=== PATIENT | male | born 1985 | race Caucasian/White ===

== ENCOUNTER 2023-03-14 10:59 | Emergency (ER) | payer OTHER, MEDICAID, SELFPAY ==
[2023-03-14 11:01] VITALS: BP 141/103; PULSE 110; RESP 18; TEMP 36.6; O2SAT 98; BMI 44.1
--- NOTE | 2023-03-14 11:11 | EX.ED.DYSGE1 ---
HPI History of Present Illness Chief Complaint: Dizziness [facility] Home Medications diphenhydramine HCl 25 mg capsule (Banophen) 25 mg PO TID PRN PRN Anaphylaxis ##30 07/15/13 [Rx Last Taken Unknown] epinephrine 0.3 mg/0.3 mL injection, auto-injector 0.3 mg (0.3 mL) IM X1 ##2 07/15/13 [Rx Last Taken Unknown] famotidine 20 mg tablet 20 mg PO DAILY ##5 07/15/13 [Rx Last Taken Unknown] prednisone 20 mg tablet 40 mg PO DAILY ##5 07/15/13 [Rx Last Taken Unknown] epinephrine 0.3 mg/0.3 mL injection, auto-injector 0.3 mg (0.3 mL) IM X1 ##2 05/28/16 [Rx Last Taken Unknown] meclizine 25 mg tablet 25 mg PO 4X/DAY PRN PRN Dizziness #20 tabs 03/14/23 [Rx Last Taken Unknown] Allergy/AdvReac Type Severity Reaction Status Date / Time No Known Allergies Allergy Verified 03/14/23 11:00 Social History Smoking Status: Former smoker EXAM Physical Exam Const Vital Signs: 03/14/23 11:01 03/14/23 11:34 03/14/23 12:10 Temperature 97.8 F Temperature Source Temporal Pulse Rate 110 H Pulse Rate [Lying] 93 Pulse Rate [Sitting (for 1 minute prior to obtaining)] 98 Pulse Rate [Standing (for 1 minute prior to obtaining)] 112 H Respiratory Rate 18 Respiratory Effort Normal Non-Labored Blood Pressure 141/103 H Blood Pressure [Lying] 141/86 H Blood Pressure [Sitting (for 1 minute prior to obtaining)] 139/84 H Blood Pressure [Standing (for 1 minute prior to obtaining)] 140/69 H Blood Pressure Mean 115 Blood Pressure Mean [Lying] 104 Blood Pressure Mean [Sitting (for 1 minute prior to obtaining)] 102 Blood Pressure Mean [Standing (for 1 minute prior to obtaining)] 92 Pulse Ox 98 Oxygen Delivery Method Room Air 03/14/23 12:11 03/14/23 14:08 Temperature Temperature Source Pulse Rate 82 87 Pulse Rate [Lying] Pulse Rate [Sitting (for 1 minute prior to obtaining)] Pulse Rate [Standing (for 1 minute prior to obtaining)] Respiratory Rate 25 H 12 Respiratory Effort Blood Pressure 132/70 H 157/99 H Blood Pressure [Lying] Blood Pressure [Sitting (for 1 minute prior to obtaining)] Blood Pressure [Standing (for 1 minute prior to obtaining)] Blood Pressure Mean 90 118 Blood Pressure Mean [Lying] Blood Pressure Mean [Sitting (for 1 minute prior to obtaining)] Blood Pressure Mean [Standing (for 1 minute prior to obtaining)] Pulse Ox 96 97 Oxygen Delivery Method Room Air Room Air [facility] [place] Medical decision making narrative: HISTORY OF PRESENT ILLNESS: 38-year-old male here for dizziness that started yesterday morning. States he notes room spinning he notes he is nauseous. He states the dizziness is worse when rising from a seated position. States symptoms have been going on for last 24 hours. Denies any head trauma or loss of sensation. Does note a family history of intracranial aneurysms. States he was seen in urgent care prior to arrival and they were concerned about intracranial aneurysms. Patient denies sudden onset or thunderclap headache, denies maximal intensity within 1 minute, vomiting, neck pain or stiffness, changes in vision, fever, history malignancy, syncope, seizures. REVIEW OF SYSTEMS: Pertinent positives: Dizziness, nausea Pertinent negatives: Focal numbness weakness or loss of sensation PHYSICAL EXAM: Nursing triage notes reviewed, Vital signs reviewed Constitutional: please see mdm HENT: MMM Eyes: Pupils equal round and reactive to light, Extraocular muscles intact Neck: No stridor, no JVD, full neck ROM Lungs: Clear to auscultation, No wheezing or rales. No increased work of breathing, no conversational dyspnea, no accessory muscle use, no nasal flaring. No respiratory distress noted Heart: Regular rate and rhythm, No murmurs, No rubs and No gallops, 2+ distal pulses (radial, femoral, posterior tibial) in all extremities Abdomen: Soft, there is no tenderness, rigidity, rebound or guarding, no obvious peritoneal signs, no palpable pulsatile abdominal masses, no auscultated abdominal bruit : No CVAT Extremities: No edema Neuro: Alert and oriented x3, neuro exam at baseline, cranial nerves II through XII are intact. No pain with extraocular muscle movement. There is negative test of skew. Normal speech. 5 of 5 strength in upper and lower extremities in flexion extension. Intact sensation to light touch in upper and lower extremity dermatomes. No truncal or extremity ataxia. No dysdiadochokinesia. Normal gait. 2+ reflexes. No meningeal signs. Negative Babinski. NIH of 0 Skin: No rash or lesions noted MEDICAL DECISION MAKING: Chief Complaint: Dizziness External records reviewed: No recent advanced imaging of the head noted in the chart Factors affecting care: GERD Social determinants of health: Former smoker History obtained from others: Consults: None ALL IMAGES HAVE BEEN PERSONALLY REVIEWED AND INTERPRETED BY MYSELF. MDM Narrative: Patient was hemodynamically stable, mild tachycardic afebrile and nontoxic-appearing I considered the following differential diagnosis: Dehydration, electrolyte abnormalities, anemia, ACS posterior circulation CVA, peripheral vertigo, BPPV, labyrinthitis Initial neuro exam was nonfocal. NIH of 0. No truncal, extremity or gait ataxia noted. Maddy-Hallpike was negative. Given negative [place]-Hallpike was more concerned about a central etiology the patient's dizziness. I obtained a CTA of the head and neck which showed no evidence of aneurysm, large vessel occlusion or acute CVA, bleed or mass. Labs were without evidence of significant dehydration, leukocytosis, anemia, myocardial ischemia. EKG had no evidence of arrhythmia or myocardial ischemia as well. Chest x-ray showed no evidence of focal cardiopulmonary abnormalities. No clear life or limb threatening abnormality could be identified to explain the patient's dizziness. Given its exacerbation by rising from a seated position I suspect he is having some orthostatic hypotension producing dizziness and near syncope. I encouraged him to get increase his fluid intake and to follow-up his primary care physician for outpatient evaluation. I gave strict return precautions and follow-up instructions. I completed a structured, evidence-based clinical evaluation to screen for acute stroke and neurologic deficits in this patient. The patient has a normal detailed neurologic exam, which is highly sensitive for dangerous causes of dizziness, vertigo, or loss of balance. The evidence indicates that the patient is very low risk for an acute neurologic emergency and this is consistent with my clinical intuition. The risk of further workup or hospitalization is likely higher than the risk of the patient having a stroke or other dangerous neurologic condition. It is, therefore, in the patient?s best interest not to do additional emergent testing or to be hospitalized at this time. Shared Decision-Making I have discussed with the patient my clinical impression and the result of an evidence-based clinical evaluation to screen for stroke, as well as the risk of further testing and hospitalization. The evidence shows that the risk for stroke is less than 1%. Although the risk of stroke has not been completely eliminated, the risks of further testing or hospitalization likely exceed any potential benefit, and the patient agrees with not pursuing further emergent evaluation or hospitalization for stroke evaluation at this time. The patient and/or family, caregivers express understanding. The patient and/or family, caregivers agrees with the plan. Total critical care time today provided was at least 0 minutes. This excludes separately billable procedures. Critical care time if documented is secondary to the patient having high probability of clinically significant/life threatening deterioration in the patient's condition which required my urgent intervention. Lab Data Attestation: I reviewed the patient's lab results. Lab results narrative: EKG with normal sinus rhythm, left axis deviation, normal intervals, no STEMI CBC without leukocytosis, severe anemia, no thrombocytopenia. BMP without evidence of significant electrolyte abnormalities, no anion gap, no acute kidney injury. Troponin is negative, no evidence of myocardial ischemia Labs: Laboratory Results - last 24 hr 03/14/23 03/14/23 12:05 12:05 WBC 6.1 RBC 5.23 Hgb 15.0 Hct 43.8 MCV 83.7 MCH 28.7 MCHC 34.2 RDW Std Deviation 35.8 RDW Coeff of Oracio 11.9 Plt Count 281 MPV 9.6 Immature Gran % (Auto) 0.700 Neut % (Auto) 62.6 Lymph % (Auto) 27.4 [place] % (Auto) 6.4 Eos % (Auto) 2.1 Baso % (Auto) 0.8 Absolute Neuts (auto) 3.8 Absolute Lymphs (auto) 1.66 Nucleated RBC % 0 Sodium 138 Potassium 4.0 Chloride 109 H Carbon Dioxide 25.0 Anion Gap 4 L BUN 19 H Creatinine 1.08 Estim Creat Clear Calc 99.79 Est GFR (MDRD) Af Amer 97 Est GFR (MDRD) Non-Af 81 BUN/Creatinine Ratio 17.6 Glucose 136 H Calcium 9.1 Troponin I High Sens 4 Radiography Chest X-Ray - ED: Read by ED Physician Diagnostic Testing: Clinical Impression(s) from Imaging Studies Head/Neck CTA 03/14/23 11:57 IMPRESSION: Mucosal thickening of the ethmoid sinuses and right maxillary sinus as well as the anterior aspect of the right sphenoid sinus. Electronically Signed: Lukas Arevalo MD at 13:25 EDT , Chest X-Ray 03/14/23 12:45 IMPRESSION: Normal x-ray examination of the chest. Electronically Signed: Lukas Arevalo MD at 13:16 EDT , I have personally reviewed the patient's chest x-ray. Chest x-ray is unremarkable for pulmonary edema, pneumothorax, pneumonia or focal cardiopulmonary abnormality. Discharge Plan Triage Chief Complaint: Dizziness ED Provider: Jonny Parish Dx/Rx/DC Orders Instructions: ED Dizziness, Uncertain Cause Prescriptions: New meclizine 25 mg tablet 25 mg PO 4X/DAY PRN PRN (Reason: Dizziness) Qty: 20 0RF No Action prednisone 20 MG tablet 40 mg PO DAILY Qty: 5 0RF Rx Instructions: take for 5 days famotidine 20 MG tablet 20 mg PO DAILY Qty: 5 0RF Rx Instructions: take for 5 days diphenhydramine HCl [Banophen] 25 MG capsule 25 mg PO TID PRN PRN (Reason: Anaphylaxis) Qty: 30 0RF epinephrine 0.3 MG syringe 0.3 mg IM X1 Qty: 2 1RF epinephrine 0.3 MG syringe 0.3 mg IM X1 Qty: 2 1RF Stand Alone Forms: ED Work / School Excuse Primary Care Provider: Sam Rosales Referrals: Sam Rosales MD [Primary Care Provider] - Activity Restrictions/Additional Instructions: Thank you for trusting us with your care today! Please take meclizine as needed for dizziness. Please return to the emergency department if your symptoms change or worsen. Specifically if you develop loss of vision, blurry vision, slurred speech, difficulty swallowing, difficulty talking, loss of sensation or movement in your extremities. Please follow with your primary care physician for further outpatient evaluation and management. Disposition Disposition: Home, Self Care Discharge Date/Time: 03/14/23 14:12
[2023-03-14 11:34] VITALS: BP 139/84; BP 140/69; BP 141/86; PULSE 112; PULSE 93; PULSE 98
--- NOTE | 2023-03-14 11:57 | CT_ITS ---
STUDY: CTA HEAD AND NECK WITH CONTRAST REASON FOR EXAM: Male, 38 years old. Dizziness RADIATION DOSAGE (If Supplied By Facility): CTDIvol = ( 38.95 ) mGy, DLP = ( 1262.47 ) mGycm TECHNIQUE: CT angiography was performed with a multi-detector CT scanner. Data acquisition was obtained from the skull base through the vertex following intravenous administration of IV 100mL [id number]-[id number]. MIP images were reconstructed from the axial data set. Post-processing of the angiographic images was performed, with multiplanar reformation and 3D reconstruction. Individualized dose optimization techniques were used for this CT. COMPARISON: No relevant priors. FINDINGS: Normal bilateral petrous carotid arteries. Normal right cavernous carotid artery with a normal supraclinoid bifurcation. Normal left cavernous carotid artery with a normal supraclinoid bifurcation. Normal right A1 segments of the anterior cerebral artery. Normal left A1 segments of the anterior cerebral artery. Normal intact anterior communicating artery (ACOM). Normal bilateral A2 segments of the anterior cerebral arteries. Normal right M1 and M2 segments of the middle cerebral arteries, with a normal M1 bifurcation. Normal left M1 and M2 segments of the middle cerebral arteries, with a normal M1 bifurcation. Normal right posterior communicating artery (PCOM). Normal left posterior communicating artery (PCOM). Normal bilateral vertebral arteries. Normal basilar artery with a normal basilar bifurcation. The visualized bilateral superior cerebellar (SCA) arteries are normal. Normal bilateral P1, P2 and visualized P3 segments of the posterior cerebral arteries. There is no demonstrated aneurysm of the [place]. There is no demonstrated abnormality of the visualized brain. AORTIC ARCH: Normal visualized aortic arch. Normal origins of the brachiocephalic, left common carotid, and left subclavian arteries. RIGHT CAROTID ARTERIES: Normal right common carotid artery (CCA). Normal right common carotid bulb. Normal origin of the right internal carotid (ICA) artery without a hemodynamically significant stenosis. Normal visualized cervical portion of the right internal carotid artery. Normal origin of the right external carotid artery (ECA). LEFT CAROTID ARTERIES: Normal left common carotid artery (CCA). Normal left common carotid bulb. Normal origin of the left internal carotid (ICA) artery without a hemodynamically significant stenosis. Normal visualized cervical portion of the left internal carotid artery. Normal origin of the left external carotid artery (ECA). VERTEBRAL ARTERIES: Normal bilateral vertebral arteries. IMPRESSION: Normal CTA Head and neck with contrast. Electronically Signed: Lukas Arevalo MD at 13:23 EDT , STUDY: CT BRAIN WITHOUT CONTRAST REASON FOR EXAM: Male, 38 years old. Dizziness RADIATION DOSAGE (If Supplied By Facility): CTDIvol = ( 44.99 ) mGy, DLP = ( 796.11 ) mGycm TECHNIQUE: Transaxial CT imaging of the brain was performed without administration of intravenous contrast material. Individualized dose optimization techniques were used for this CT. COMPARISON: None FINDINGS: Normal soft tissue structures. Normal calvarium. Normal size ventricles and extra-axial spaces for the patient''s age. Normal white matter tracts of the cerebral hemispheres. Normal basal ganglia and thalami. Normal brainstem. Normal cerebellum. There is no intracranial hemorrhage. There are no findings of an acute ischemic infarction. Minimal mucosal thickening of the ethmoid sinus and right maxillary sinus. Focal mucosal thickening along the anterior aspect of the right sphenoid sinus. CT/CTA Head AND Neck W/ Contrast IMPRESSION: Mucosal thickening of the ethmoid sinuses and right maxillary sinus as well as the anterior aspect of the right sphenoid sinus. Electronically Signed: Lukas Arevalo MD at 13:25 EDT ,
--- NOTE | 2023-03-14 11:58 | EKG12_ITS ---
Test Reason : DIZZINESS Blood Pressure : / mmHG Vent. Rate : 084 BPM Atrial Rate : 084 BPM P-R Int : 174 ms QRS Dur : 110 ms QT Int : 374 ms P-R-T Axes : 049 -23 030 degrees QTc Int : 441 ms Normal sinus rhythm Normal ECG Confirmed by SANYA FELICIANO, RICHAR ([id number]), field map editor VALDEMAR COX ([id number]) on 03/15/2023 9:05:58 AM Referred By: Confirmed By:RICHAR SEGUNDO MD
--- NOTE | 2023-03-14 12:06 | NURSING ---
NO OLD EKGS
[2023-03-14 12:11] VITALS: BP 132/70; PULSE 82; RESP 25; O2SAT 96
[2023-03-14 12:12] LABS: Absolute Lymphocyte Count 1.66 X10^3/uL (0.83-4.51); Absolute Neutrophil Count 3.8 X10^3/uL (2.0-7.7); Basophil# 0.05 X10^3/uL; Basophil% 0.8 % (0-1); Eosinophil# 0.13 X10^3/uL; Eosinophils% 2.1 % (0-5); Hematocrit 43.8 % (40-54); Lymphocyte # 1.66 X10^3/ul (0.83-4.51); Lymphocyte % 27.4 % (19-41); Mean Corp Hgb Conc 34.2 g/dL (32-36); Mean Corpuscular Hgb 28.7 pg (27.0-32.0); Mean Corpuscular Volume 83.7 fL (80-94); Mean Platelet Vol. 9.6 fl (6.2-12.0); Monocyte# 0.39 X10^3/uL; Monocyte% 6.4 % (0-10); NRBC Flagged by Analyzer 0 % (0-5); Neutrophil # 3.78 X10^3/uL (2.7-7.7); Neutrophil % 62.6 % (47-70); Platelet Count 281 K/mm3 (150-450); RBC Distribution Width CV 11.9 % (11.6-14.6); RBC Distribution Width SD 35.8 fl (35.1-43.9); Red Blood Count 5.23 M/mm3 (4.6-6.2); White Blood Count 6.1 K/mm3 (4.4-11.0)
[2023-03-14] MEDS: Meclizine HCl 25 MG Tablet PO (12:22)
[2023-03-14 12:29] LABS: Anion Gap 4 (5-15); BUN 19 mg/dL (7-18); BUN/Creat Ratio 17.6 RATIO (10-20); Calcium,Total 9.1 mg/dL (8.5-10.1); Chloride 109 mmol/L (98-107); Creatinine, Serum 1.08 mg/dL (0.70-1.30); EST Glomerular Filtration Rate 81 mL/min (>60); Est Glom Filt Rate - Afr Amer 97 mL/min (>60); Estimated Creatinine Clearance 99.79 ml/min; Glucose 136 mg/dL (74-106); Sodium Level 138 mmol/L (136-145); Troponin-I HS 4 pg/mL (3.0-78.0)
--- NOTE | 2023-03-14 12:45 | RAD_ITS ---
STUDY: X-RAY CHEST REASON FOR EXAM: Male, 38 years old. Dizziness TECHNIQUE: PA and lateral views of the chest. COMPARISON: None. FINDINGS: EKG electrodes are seen. The lungs are clear and expanded. There is no demonstrated pleural abnormality. Normal size heart. Normal mediastinum and minh. Normal visualized pulmonary arteries. Normal visualized aortic arch and descending thoracic aorta. Normal visualized thoracic spine. Normal visualized ribs, clavicles, and shoulders. There is no demonstrated abnormality of the visualized soft tissue structures of the upper abdomen. RAD/Chest PA and Lateral IMPRESSION: Normal x-ray examination of the chest. Electronically Signed: Lukas Arevalo MD at 13:16 EDT ,
[2023-03-14 14:08] VITALS: BP 157/99; PULSE 87; RESP 12; O2SAT 97
== END 2023-03-14 14:12 | disposition home or self-care (01) ==
PROVIDERS: Emergency Provider Emergency Medicine; PCP Family Medicine; Visit Provider Emergency Medicine
DX: R42 Dizziness and giddiness (principal); K21.9 Gastro-esophageal reflux disease without esophagitis; Z87.891 Personal history of nicotine dependence
CPT/HCPCS: 70496; 70498; 71046; 80048; 84484; 85025; 93005; 96360; 99285; J7030; Q9967; A4216